=== PATIENT | female | born 1985 ===

== ENCOUNTER 2017-03-15 14:36 | Day surgery (SDC) | payer OTHER, BC ==
[~2017-03-15 14:36] MED LIST: AZIT250 PO; BCP; BIRTH CONTROL PILL; CEPH500 PO; CIPR500 PO; DIPH25; DIPH50 PO; FAMO20 PO; FLUC150A PO; HYDACE5 PO; IBUP600 PO; IBUP800 PO; LAVAP4L PO; METF500 PO; NAPR550 PO; PRED10 PO; PROM25 PO; PROM6.25SY PO; RANI150 PO; RXCEPH500 PO; RXHYDACE PO; RXNAPNA550 PO; SULTRIDS PO
== END 2017-03-15 22:45 | disposition home or self-care (01) ==
LOC: RAD 14:36 → MRI 16:00 → RAD 22:45
PROC: BP3DYZZ Magnetic Resonance Imaging (MRI) of Left Hand/Finger Joint using Other Contrast (ICD-10-PCS; principal; 2017-03-15)
DX: S43.431A Superior glenoid labrum lesion of right shoulder, initial encounter (principal)
CPT/HCPCS: 23350; 73222; 77002; A9577; Q9967